=== PATIENT | male | born 1980 | race Caucasian/White ===

== ENCOUNTER 2024-07-20 07:13 | Emergency (ER) | payer OTHER, SELFPAY ==
[2024-07-20 07:28] VITALS: BP 130/90; PULSE 96; RESP 18; TEMP 36.6; O2SAT 100
--- NOTE | 2024-07-20 08:47 | ED.GENADULT ---
HPI - General Adult General Chief complaint: Unspecified Stated complaint: R ear hearing difficulty, eye crusted shut ? Time Seen by Provider: 07/20/24 07:27 History of Present Illness HPI narrative: patient is a 44-year-old male who presents ER with difficulty hearing out of his right ear. Has mild discomfort. Ongoing for last 2 days. Associated with mild fevers and chills and some upper respiratory congestion. No cough. No chest pain shortness of breath. No alleviating factors. Related Data Allergies Allergy/AdvReac Type Severity Reaction Status Date / Time No Known Drug Allergies Allergy Other Verified 09/10/19 13:09 Review of Systems Constitutional: Constitutional: Reports no additional constitutional complaints ENT: Reports otalgia, Reports nasal congestion and Reports sore throat Cardiovascular: Cardiovascular: Reports no additional cardiovascular complaints Respiratory: Respiratory: Reports no additional respiratory complaints [facility] Past Medical History Medical History (Updated 07/20/24 @ 09:17 by Isaiah Jorgensen MD) Presence of ventriculopleural shunt Hernia HTN (hypertension) Seizure 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 HEAD: Normocephalic, atraumatic. ENT: Mucous membranes moist. Cerumen impaction right ear. After removal eardrums intact with slightly erythematous likely from pressure and manipulation of year. Normal left TM. Patient canal here. NECK: Supple. CHEST: Clear to auscultation. No respiratory distress. HEART: Regular rate and rhythm. No murmur heard. Normal peripheral pulses. EXTREMITIES: Normal range of motion. No edema. NEURO: Alert and oriented x3. PSYCH: Normal mood and affect. Course Course Emergency Course: Patient resting comfortably. COVID negative. D/c home. Vital Signs Vital signs: Vital Signs Temperature 97.8 F 07/20/24 07:28 Pulse Rate 96 07/20/24 07:28 Respiratory Rate 18 07/20/24 07:28 Blood Pressure 130/90 07/20/24 07:28 Pulse Oximetry 100 07/20/24 07:28 Oxygen Delivery Room Air 07/20/24 07:28 Temperature 97.8 F 07/20/24 07:28 Pulse Rate 96 07/20/24 07:28 Respiratory Rate 18 07/20/24 07:28 Blood Pressure 130/90 07/20/24 07:28 Pulse Oximetry 100 07/20/24 07:28 Oxygen Delivery Room Air 07/20/24 07:28 Procedures Ear Wax Removal Right Ear: Ear Wax Removal Date: 07/20/24 Ear Wax Removal Time: 08:25 Results: Re-examined: cerumen removed completely TM Examination: TM(s) intact, normal appearance and TM(s) erythematous Ear Canal Exam: atraumatic Patient Tolerated Procedure: well Complications: no problems Technique: ear canal irrigated and ear canal curetted Medical Decision Making Vital Signs Vital Signs: Vital Signs Temperature 97.8 F 07/20/24 07:28 Pulse Rate 96 07/20/24 07:28 Respiratory Rate 18 07/20/24 07:28 Blood Pressure 130/90 07/20/24 07:28 Pulse Oximetry 100 07/20/24 07:28 Oxygen Delivery Room Air 07/20/24 07:28 Temperature 97.8 F 07/20/24 07:28 Pulse Rate 96 07/20/24 07:28 Respiratory Rate 18 07/20/24 07:28 Blood Pressure 130/90 07/20/24 07:28 Pulse Oximetry 100 07/20/24 07:28 Oxygen Delivery Room Air 07/20/24 07:28 Lab Data Labs: Lab Results 07/20/24 Range/Units 08:02 Influenza A (RT-PCR) Negative (Negative) Influenza B (RT-PCR) Negative (Negative) RSV (RT-PCR) Negative (Negative) SARS-CoV-2 RNA (RT-PCR) Negative (Negative) Discharge Plan Discharge Clinical Impression: Cerumen impaction, URI (upper respiratory infection) Patient Disposition: Home, Self-Care Condition: Stable Instructions: Upper Respiratory Infection (ED) Additional Instructions: As discussed you have a viral illness. Unfortunately there are no specific medications we can give you to make the illness end faster. Antibiotics do not work for viral illnesses. However, you can take Acetaminophen or Ibuprofen to help with fevers and pain. Stay well hydrated and rested. Return to the emergency department if your fevers and chills continue to worse after 5 days, if you develop worsening cough with thick sputum, or are unable to stay hydrated. Contact your primary care provider in the next few days for a re-evaluation and to make sure your symptoms are improving. Patient Language: Libyan Prescriptions: New Debrox 6.5 % drops 5 drp RIGHT EAR Q12H 4 Days Qty: 15 0RF Follow-up/Referrals: Jayro Garces MD [Physician] - 1 Week UNKNOWN,DOCTOR [Primary Care Provider] -
[2024-07-20 09:08] LABS: Influenza A QL RT-PCR Negative (Negative); Influenza B QL RT-PCR Negative (Negative); RSV RNA, RT-PCR Negative (Negative); SARS-CoV-2 RNA PCR Negative (Negative)
[2024-07-20 09:24] VITALS: BP 133/102; PULSE 93; RESP 18; O2SAT 96
== END 2024-07-20 09:25 | disposition home or self-care (01) ==
PROVIDERS: Emergency Provider Emergency Medicine
DX: J06.9 Acute upper respiratory infection, unspecified (principal); H61.21 Impacted cerumen, right ear; Z20.822 Contact with and (suspected) exposure to COVID-19; I10 Essential (primary) hypertension; Z98.2 Presence of cerebrospinal fluid drainage device
CPT/HCPCS: 69210; 87637; 99283

== ENCOUNTER 2025-02-06 12:05 | Emergency (ER) | payer OTHER, SELFPAY ==
--- NOTE | ~2025-02-06 | CT_ITS ---
EXAM: CT lumbar spine wo con - 02/06/2025 13:00 CDT History: 44 years old Male with low back pain Comparison None Technique Thin helical images obtained without intravenous contrast according to standard protocol. Coronal an d sagittal reformatted images are provided. Findings No fracture or gross subluxation is appreciated. Alignment is satisfactory. No intraspinal or paraspinal mass or hematoma appreciated. Simple cyst in the right kidney. No gross mass or adenopathy identified, considering lack of IV contrast for this exam. Impression: 1. No acute abnormality of the lumbar spine detected by CT. Reviewed, dictated and finalized at location A. Impression: 1. No acute abnormality of the lumbar spine detected by CT.
[2025-02-06 12:10] VITALS: BP 145/98; PULSE 106; RESP 18; TEMP 36.6; O2SAT 100
[2025-02-06 12:30] VITALS: BP 170/108; O2SAT 93
--- NOTE | 2025-02-06 12:37 | ED_ITS ---
HPI - Back Pain/Injury General Chief Complaint: GI Bleed Stated Complaint: back injury Time Seen by Provider: 02/06/25 12:09 History of Present Illness HPI Narrative: 44-year-old male with history of hypertension presents to the emergency department for multiple medical complaints. Patient is reporting left lower back pain for the past 6 days. 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 He states about 6 days ago he noticed pain in his low back which has progressed with time. He states he did intermittently radiates down the posterior aspect of his leg to his distal thigh. He denies numbness, tingling, weakness, saddle anesthesia, bowel or bladder incontinence, urinary tension, fever, IV drug use, immunosuppressants. He states his pain worsened a few days ago after he sat on the couch for several hours to watch a movie, stood up and it felt very tight. He is also reporting bright red blood on the toilet paper after having a bowel movement this morning at 10:00 a.m.. Patient states he has never had this happen before. He denies constipation or straining. Denies abdominal pain. He is not on anticoagulants. Has not had any bleeding since. 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 HEAD: Normocephalic, atraumatic. EYES: PERRLA and EOMI. ENT: Nares clear, no rhinorrhea or epistaxis. Mucous membranes moist. NECK: Supple. BACK: Mild tenderness to the lumbar spine on palpation with tenderness over the left SI and left paraspinous muscles. No rebound or rigidity. No overlying skin changes. Negative left straight leg raise. No tenderness, crepitus, step- offs or deformities to thoracic spine CHEST: Clear to auscultation. No respiratory distress. HEART: Regular rate and rhythm. No murmur heard. Normal peripheral pulses. ABDOMEN: Soft, nontender, nondistended, normal active bowel sounds. No rebound, guarding or rigidity. No CVA tenderness. Rectal exam shows small internal hemorrhoid that is prolapsed but easily reduced. No bright red blood, no melena. Mild amount of stool in the rectal vault with good rectal tone. Hemoccult positive. No fissures EXTREMITIES: Normal range of motion. No edema. SKIN: Warm, dry, no rash. NEURO: No focal deficits. Alert and oriented x4. BLE strength 5/5. No saddle anesthesia, sensation is intact throughout. Course Vital Signs Vital signs: Vital Signs Temperature 97.8 F 02/06/25 12:10 Pulse Rate 106 H 02/06/25 12:10 Respiratory Rate 18 02/06/25 12:10 Blood Pressure 145/98 H 02/06/25 12:10 Pulse Oximetry 100 02/06/25 12:10 Oxygen Delivery Room Air 02/06/25 12:10 Temperature 97.8 F 02/06/25 12:10 Pulse Rate 106 H 02/06/25 12:10 Respiratory Rate 18 02/06/25 12:10 Blood Pressure 145/98 H 02/06/25 12:10 Pulse Oximetry 100 02/06/25 12:10 Oxygen Delivery Room Air 02/06/25 12:10 MDM - Back Pain/Injury MDM Narrative Medical decision making narrative: 44-year-old male presents to emergency department for low back pain for the past 6 days. Patient works at a warehouse and lifts heavy objects. Denies injury or trauma. Denies fever. No red flag back pain signs. Vitals with mild tachycardia 106 and blood pressure 145/98, otherwise unremarkable. Patient is afebrile and nontoxic appearing. Exam is notable for mild tenderness to the lumbar spine with more notable tenderness over the left paraspinous muscles and left SI. He is neurovascularly intact. Saddle anesthesia, bowel or bladder changes. CT lumbar spine shows no acute abnormality of the lumbar spine detected on CT. Patient was given Flexeril, lidocaine patch and Tylenol with improvement. Will send these to the pharmacy. He is also requesting work note for light duty until cleared by his PCP which is been provided. Patient is also endorsing bright red blood on the toilet paper after having a bowel movement today at 10:00 a.m.. He denies history of the same. No abdominal pain or fevers. He is not anticoagulated. Rectal exam shows a small prolapsed internal hemorrhoid that is easily reduced, no active bleeding or melena. Hemoccult is positive. Lab work shows mild leukocytosis of 11.5, normal hemoglobin of 16. Normal platelets. Chemistries are unremarkable. UA is unremarkable. Coags normal. Suspect hemorrhoid source of BRBPR. Patient will be given a script for hydrocortisone suppositories and GI follow-up. The patient was given strict ED return precautions. He is agreeable with the plan verbalized understanding. Discharged in stable condition. Lab Data 02/06/25 12:35 02/06/25 12:35 Labs: Lab Results 02/06/25 02/06/25 Range/Units 12:35 13:21 WBC 11.5 H (4.5-10.0) K/mm3 RBC 5.58 (4.6-6.20) M/mm3 Hgb 16.0 (14.0-18.0) g/dL Hct 49.8 (42.0-52.0) % MCV 89.2 (80-100) fl MCH 28.7 (26-34) pg MCHC 32.1 (32-36) g/dl RDW 12.8 (11.5-14.5) % Plt Count 305 (150-375) k/mm3 MPV 10.0 (7.4-10.4) fl Immature Gran % (Auto) 0.3 (0-0.5) % Neut % (Auto) 62.5 (45.5-73.1) % Lymph % (Auto) 25.6 (18.3-44.2) % [place] % (Auto) 8.8 H (2.6-8.5) % Eos % (Auto) 2.2 (0-4.4) % Baso % (Auto) 0.6 (0.2-1.2) % Lymph # (Auto) 2.94 (0.9-3.2) K/mm3 [place] # (Auto) 1.0 H (0.1-0.6) K/mm3 Eos # (Auto) 0.3 (0-0.3) K/mm3 Baso # (Auto) 0.1 (0.0-0.1) K/mm3 Abs Immat Gran (auto) 0.03 (0.00-0.031) K/mm3 Absolute Neuts (auto) 7.2 H (1.3-6.7) K/mm3 Absolute Nucleated RBC 0.000 (0.0-0.012) K/mm3 Nucleated RBC % 0.0 (0.0-0.2) % PT 13.2 (11.1-14.7) Seconds INR 1.0 APTT 26.0 (22.3-36.8) Seconds Sodium 141 (137-145) mmol/L Potassium 4.2 (3.4-5.0) mmol/L Chloride 104 (98-107) mmol/L Carbon Dioxide 27 (22-30) mmol/L Anion Gap 10 (4-12) mmol/L BUN 19 (9-20) mg/dL Creatinine 0.86 (0.7-1.3) mg/dL Estim Creat Clear Calc Not Reportable Estimated GFR > 60 (59 - ) Glucose 114 H (65-110) mg/dL Calcium 9.3 (8.4-10.2) mg/dL Urine Color Yellow (Yellow) Urine Appearance Clear (Clear) Urine pH 5.0 (5.0-9.0) Ur Specific [place] 1.025 (1.001-1.035) Urine Protein Negative (Negative) mg/dL Urine Glucose (UA) Negative (Negative) mg/dL Urine Ketones Negative (Negative) mg/dL Ur Blood (Man) Negative (Negative) Urine Nitrate Negative (Negative) Urine Bilirubin Negative (Negative) Urine Urobilinogen 0.2 (<2.0) mg/dL Leukocyte Esterase Rfl Negative (Negative) ANAI/UL Discharge Plan Discharge Clinical Impression: Hemorrhoid Qualifiers: Hemorrhoid type: unspecified Qualified Code(s): K64.9 - Unspecified hemorrhoids Back strain Qualifiers: Encounter type: initial encounter Qualified Code(s): S39.012A - Strain of muscle, fascia and tendon of lower back, initial encounter Patient Disposition: Home Condition: Stable Instructions: Antibiotic Form, Hemorrhoids (ED), Acute Low Back Pain (ED), Sitz Bath (DC), Lower Back Exercises (ED) Additional Instructions: You were evaluated in the emergency department for back pain and bright red blood after having a bowel movement. You were found to have a small internal hemorrhoid. Please use the steroid suppositories as directed. Do not strain. Do Sitz baths throughout the day. Follow-up with the GI doctor. Your back pain is due to a muscle strain. Please take the medications as directed follow-up with your PCP. Return to the emergency department if you develop increasing bleeding from her rectum, abdominal pain, fever, lightheadedness, chest pain or shortness of breath, numbness in your groin, lose control of her bowel or bladder, or other concerning symptoms. Patient Language: Swedish Prescriptions: New cyclobenzaprine 10 mg tablet 10 mg PO TID PRN (Reason: muscle spasm) Qty: 14 0RF acetaminophen 500 mg capsule 500 mg PO Q6H PRN (Reason: pain) Qty: 14 0RF lidocaine 5 % adhesive patch,medicated 1 patch topical DAILY Qty: 15 0RF Rx Instructions: leave on most painful area for up to 12 hrs. do not use more than 1 patch in a 24-hour period. hydrocortisone acetate 25 mg suppository 25 mg RECTAL DAILY Qty: 12 0RF No Action Debrox 6.5 % drops 5 drp RIGHT EAR Q12H 4 Days Qty: 15 0RF Debrox 6.5 % drops 5 drp RIGHT EAR Q12H 4 Days Qty: 15 0RF Follow-up/Referrals: Fernandez Plasencia MD [Physician] - Gumaro Varela MD [Physician] - UNKNOWN,DOCTOR [Primary Care Provider] -
[2025-02-06 12:40] LABS: Hematocrit 49.8 % (42.0-52.0); Hemoglobin 16.0 g/dL (14.0-18.0); Immature Granulocyte Percent A 0.3 % (0-0.5); Lymphocytes Absolute Auto 2.94 K/mm3 (0.9-3.2); Mean Corpuscular HGB Conc 32.1 g/dl (32-36); Mean Corpuscular Hemoglobin 28.7 pg (26-34); Mean Corpuscular Volume 89.2 fl (80-100); Nucleated Red Blood Cells Absolute Auto 0.000 K/mm3 (0.0-0.012); Nucleated Red Blood Cells Perc 0.0 % (0.0-0.2); Platelet Count Result 305 k/mm3 (150-375); Red Blood Count 5.58 M/mm3 (4.6-6.20); White Blood Count 11.5 K/mm3 (4.5-10.0)
[2025-02-06] MEDS: CYCLOBENZAPRINE HCL 10 MG TABLET PO (12:40)
[2025-02-06] MEDS: LIDOCAINE 5% PATCH 1 PATCH TRANSDERM (12:40)
[2025-02-06] MEDS: ACETAMINOPHEN 500 MG TABLET 1000 MG PO (12:40)
[2025-02-06 12:46] VITALS: BP 166/101; PULSE 89; RESP 21
[2025-02-06 12:50] LABS: INR 1.0; Prothrombin Time 13.2 Seconds (11.1-14.7)
--- OUTSIDE RECORDS SUMMARY | 2025-02-06 12:50 | XMS_ITS | Clinical Summary ---
Author Organization [facility] [place] Address [address] [address] Care Team Providers Care Hematologist Oncologist Name Role Phone Unavailable Primary Care Provider Unavailabl e Active Problems No known active problems Encounters Date Type Department Care Team Description 01/01/2025 External Device Data [facility]STRACTION Provider, Abstract 12/19/2024 External Device Data [facility] Provider, Abstract 12/18/2024 External Device Data [facility] Provider, Abstract 11/13/2024 External Device Data [facility] Provider, Abstract from Last 3 Months Immunizations Immunization Administration Dates Next Due INFLUENZA VACCINE TRIVALENT SPLIT VIRUS, (6 MOS UP), 0.5ML (PF), IM 04/30/2024 Social History Tobacco Use Types Packs/Day Years Used Date Smoking Tobacco: Never Assessed Sex and Gender Information Value Date Recorded Sex Assigned at Not on file Legal Sex Male 1:45 PM CDT Gender Identity Not on file Sexual Orientation Not on file Last Filed Vital Signs Vital Sign Reading Time Taken Comments Blood Pressure 130/80 10/05/2024 1:15 PM [employer] Pulse - - Temperature - - Respiratory Rate - - Oxygen Saturation - - Inhaled Oxygen Concentration - - Weight 93.9 kg (207 lb) 10/05/2024 1:15 PM [employer] Height 170.2 cm (5' 7) 10/05/2024 1:15 PM [employer] Body Mass Index 32.42 10/05/2024 1:15 PM [employer] Plan of Treatment Health Maintenance Due Date Last Done Comments Pre-Diabetes and Diabetes Screening 1978 DTAP/TDAP/TD VACCINES (1 - Tdap) 1997 HEPATITIS B VACCINES (1 of 3 - 19+ 3-dose series) 1997 COLORECTAL SCREENING 2023 Colorectal Cancer Screening 2023 FIT-DNA Q 3 years 2023 FIT/FOBT Q 1 year 2023 Flex Sig/CT Colonography Q 5 years 2023 INFLUENZA VACCINE (#1) 2025 04/30/2024 HPV VACCINES Aged Out No longer eligi ble based on patient's age to complete this topic
[2025-02-06 12:51] LABS: Partial Thromboplastin Time 26.0 Seconds (22.3-36.8)
[2025-02-06 12:53] LABS: Anion Gap 10 mmol/L (4-12); Blood Urea Nitrogen 19 mg/dL (9-20); Calcium 9.3 mg/dL (8.4-10.2); Carbon Dioxide 27 mmol/L (22-30); Chloride 104 mmol/L (98-107); Estimated Glomerular Filt Rate > 60; Glucose 114 mg/dL (65-110); Potassium 4.2 mmol/L (3.4-5.0); Sodium 141 mmol/L (137-145)
[2025-02-06 13:01] VITALS: BP 131/90; O2SAT 94
[2025-02-06 13:13] VITALS: BP 125/87; RESP 25; O2SAT 96
[2025-02-06 13:15] VITALS: BP 121/87; RESP 16; O2SAT 90
[2025-02-06 13:36] LABS: Add Urine Microscopic? NO; Appearance Urine Clear (Clear); Glucose Urine UA Negative (Negative); Leukocyte Esterase Ur Negative LEU/UL (Negative); Nitrate Urine Negative (Negative); Specific Grav Ur 1.025 (1.001-1.035)
== END 2025-02-06 14:05 | disposition home or self-care (01) ==
PROVIDERS: Emergency Provider Physician Assistant
DX: K64.9 Unspecified hemorrhoids (principal); S39.012A Strain of muscle, fascia and tendon of lower back, initial encounter; I10 Essential (primary) hypertension; X50.0XXA Overexertion from strenuous movement or load, initial encounter
CPT/HCPCS: 36415; 72131; 80048; 81003; 85025; 85610; 85730; 99284; A9270